=== PATIENT | female | born 1945 | race Caucasian/White ===

== ENCOUNTER 2017-06-08 11:29 | Observation (INO) | payer MEDICARE, OTHER ==
[2017-06-08] MEDS ORDERED: NS 0.9% 1000 ML* 2,000 ML IV ONE (12:00)
[2017-06-08 12:22] LABS: Hematocrit 28 % (35-47); Hemoglobin 9.1 g/dl (12.0-16.0); Mean Corpuscular HGB Conc 33 g/dl (31-36); Mean Corpuscular Hemoglobin 31 pg (27-31); Mean Corpuscular Volume 95 fL (80-97); Mean Platelet Volume 8 um3 (7.4-10.4); Red Blood Count 2.91 10^6/ul (4.0-5.4); Red Cell Distribution Width 15 % (10.5-15); White Blood Count 8.4 10^3/ul (3.5-10.8)
[2017-06-08 12:39] LABS: Albumin 3.2 g/dL (3.2-5.2); C Reactive Protein 212.8 mg/L (< 5.00); Calcium 9.4 mg/dL (8.6-10.3); EGFR African American 26.3 (>60); EGFR Non-African American 20.5 (>60); Globulin 3.6 g/dL (2-4); Potassium 3.3 mmol/L (3.5-5.0); Total Bilirubin 0.6 mg/dL (0.2-1.0); Total Protein 6.8 g/dL (6.4-8.9)
[2017-06-08] MEDS ORDERED: Potassium Chlor TAB* 20 MEQ TAB.ER PO ONE (13:12)
--- NOTE | 2017-06-08 13:39 | ED ---
Znea Allison Thomas, scribed for Kami Santana MD on 06/08/17 at 1205 . Complex/Multi-Sys Presentation - HPI Summary HPI Summary: The pt is a 71 y/o F BIBA after a syncopal episode that occurred earlier today as she was walking to the bathroom. The patient has been having watery diarrhea for the last four days. She feels dehydrated. Pt denies vomiting, fever, and dizziness. She denies recent antibiotics use or recent sick contacts. She last voided shortly before arrival to the ED. - History Of Current Complaint Chief Complaint: EDSyncope Time Seen by Provider: 06/08/17 11:37 Hx Obtained From: Patient Onset/Duration: Lasting Days - 4, Still Present, Worse Since - syncopal episode earlier today Timing: Intermittent, Lasting: Severity Currently: Moderate Location: Negative Aggravating Factor(s): None Alleviating Factor(s): None Associated Signs And Symptoms: Positive: Other - Syncope, diarrhea; NEGATIVE: vomiting, fever, dizziness - Allergies/Home Medications Allergies/Adverse Reactions: Allergies Allergy/AdvReac Type Severity Reaction Status Date / Time No Known Allergies Allergy Verified 12/01/13 14:25 Home Medications: Home Medications Allopurinol TAB* [Zyloprim 100 MG TAB*] 200 mg PO DAILY 06/08/17 [History Confirmed 06/08/17] PMH/Surg Hx/FS Hx/Imm Hx Previously Healthy: No Endocrine/Hematology History: Denies: Hx Diabetes, Hx Thyroid Disease Cardiovascular History: Reports: Hx Hypertension, Hx Valvular Heart Disease - MITRAL VALVE REGURGITATION Respiratory History: Denies: Hx Asthma, Hx Chronic Obstructive Pulmonary Disease (COPD) GI History: Reports: Hx Gall Bladder Disease - CHOLECYSECTOMY Denies: Hx Ulcer History: Denies: Hx Acute Renal Failure - CURRENT DX 03/13/13 - Cancer History Cancer Type, Location and Year: UTERINE CA (TREATED W/ RADIATION & CHEMO) Hx Chemotherapy: Yes Hx Radiation Therapy: Yes - Surgical History Surgery Procedure, Year, and Place: 2008 HYSTERECTOMY R/T UTERINE CANCER. CHOLECYSTECTOMY. PORT-A-CATH INSERTION & D/C 03/10/13-removed 03/07/13 Infectious Disease History: No Infectious Disease History: Reports: Hx Shingles - DX 03/11/13 Denies: Hx Hepatitis, Hx Human Immunodeficiency Virus (HIV), History Other Infectious Disease, Traveled Outside the [place] in Last 30 Days - Family History Known Family History: Positive: Other - Patient denies relevant FHx - Social History Lives: With Family Alcohol Use: Rare Substance Use Type: Reports: None Review of Systems Negative: Fever Positive: Diarrhea. Negative: Vomiting Neurological: Other - NEGATIVE: dizziness Positive: Syncope All Other Systems Reviewed And Are Negative: Yes Physical Exam - Summary Physical Exam Summary: VITAL SIGNS: Reviewed. GENERAL: Patient is a well-developed and nourished female who is lying comfortable in the stretcher. Patient is not in any acute respiratory distress. HEAD AND FACE: No signs of trauma. No ecchymosis, hematomas or skull depressions. No sinus tenderness. EYES: PERRLA, EOMI x 2, No injected conjunctiva, no nystagmus. EARS: Hearing grossly intact. Ear canals and tympanic membranes are within normal limits. MOUTH: Oropharynx within normal limits. NECK: Supple, trachea is midline, no adenopathy, no JVD, no carotid bruit, no c- spine tenderness, neck with full ROM. CHEST: Symmetric, no tenderness at palpation LUNGS: Clear to auscultation bilaterally. No wheezing or crackles. CVS: Regular rate and rhythm, S1 and S2 present, no murmurs or gallops appreciated. ABDOMEN: Soft, non-tender. No signs of distention. No rebound no guarding, and no masses palpated. Hyperactive bowel sounds. EXTREMITIES: FROM in all major joints, no edema, no cyanosis or clubbing. NEURO: Alert and oriented x 3. No acute neurological deficits. Speech is normal and follows commands. SKIN: Dry and warm Triage Information Reviewed: Yes Vital Signs On Initial Exam: Initial Vitals BP 104/48 06/08/17 11:48 Vital Signs Reviewed: Yes Diagnostics - Vital Signs Vital Signs Temp Pulse Resp BP Pulse Ox 06/08/17 11:51 97.6 F 73 18 104/48 97 06/08/17 11:49 73 99 06/08/17 11:48 104/48 - Laboratory Result Diagrams: 06/08/17 12:09 06/08/17 12:09 Lab Statement: Any lab studies that have been ordered have been reviewed, and results considered in the medical decision making process. Complex Multi-Symp Course/Dx - Diagnoses Provider Diagnoses: Acute renal insufficiency, Dehydration, Diarrhea - Physician Notifications Discussed Care Of Patient With: Fam Clarke Time Discussed With Above Provider: 13:28 Instructed by Provider To: Other - Dr. Clarke, hospitalist, will admit the patient. Discharge - Discharge Plan Condition: Fair Disposition: ADMITTED TO [facility] Referrals: Roverto Salas MD [Primary Care Provider] - The documentation as recorded by the Zena gonzalez Thomas accurately reflects the service I personally performed and the decisions made by me, Kami Santana MD.
[2017-06-08] MEDS: NS 0.9% 1000 ML* 1,000 ML IV SCH (16:25)
[2017-06-08 16:34] LABS: Urine Bacteria Absent (Absent); Urine Bilirubin Negative (Negative); Urine Glucose Negative (Negative); Urine Nitrite Negative (Negative)
--- NOTE | 2017-06-08 16:47 | HP ---
HISTORY AND PHYSICAL: DATE OF ADMISSION: 06/08/17 ADMITTING PHYSICIAN: Fam Clarke MD. PRIMARY CARE PHYSICIAN: LITA Headley. PRIMARY PEOPLESOFT FINANCIAL DEVELOPER: Dr. Gomez. CHIEF COMPLAINT: Profuse watery diarrhea x4 days, followed by loss of consciousness on the day of admission. HISTORY OF PRESENT ILLNESS: Moon Hayes is a 71-year-old female who presents with profuse watery diarrhea times last 4 days. She is having 5 to 7 bowel movement a day including 3 today. Denies fevers or chills. Today, the patient was lightheaded while standing. She had an observed fall with her present who was unable to catch her. She hit her back on the side of a corner of her bathroom. She denied any chest pain, shortness of breath or palpitations , tongue biting, arm or leg movements, urination. The patient denies also any fever, chills, abdominal pain, nausea or vomiting symptoms frankly just limited to the diarrhea. She has cut back markedly on her solid p.o. intake and started focusing on drinking lot of water and Tono-Aid. She did have some ____ _ with her pills this morning, which she did all take her 3 morning antihypertensive medications including lisinopril 20, hydrochlorothiazide 25, metoprolol 50 in the a.m. (100 at night). Upon evaluation in the emergency room , the patient was noted to have acute kidney injury with elevated creatinine at 2.33 up from her baseline of 0.93 on 06/05/17. Potassium was low at 3.3. CRP was 212. Hemoglobin 9.1, blood pressures were 98 to 104 over 43 to 48. Heart rate was 70s to 80s, afebrile. The patient is being evaluated by hospitalist service for AILEEN, profuse diarrhea. PAST MEDICAL HISTORY: Mitral valve regurgitation, unknown severity; cardiomyopathy, unknown severity; hypertension; history of uterine cancer, status post chemotherapy, radiation, and hysterectomy. MEDICATIONS: 1. Allopurinol 200 mg daily. 2. Lisinopril 20 mg p.o. b.i.d. 3. Hydrochlorothiazide 25 mg p.o. q. a.m. 4. Metoprolol succinate 50 mg p.o. q. a.m. and 100 mg p.o. at bedtime. ALLERGIES: No known drug allergies. FAMILY HISTORY: The patient was adopted, does not know anything about siblings or parents' family medical history. SOCIAL HISTORY: The patient is a nonsmoker and nondrinker. Lives in [place] with her , Rogers Hayes, who is her medical proxy along with her daughter Em. The patient was a homemaker, is quite active at baseline. REVIEW OF SYSTEMS: A [id number] review of systems negative except as per HPI. PHYSICAL EXAMINATION GENERAL APPEARANCE: No acute distress. Sitting in the [facility]. HEENT: Normocephalic, atraumatic. Pupils equally round and reactive to light. Extraocular motions intact. No oropharynx lesions. Mucous membranes not particularly dry appearing. NECK: No cervical lymphadenopathy. PULMONARY: Clear to auscultation bilaterally with no wheezing, rales, or rhonchi. CARDIOVASCULAR: Regular rate and rhythm. No murmurs, rubs, or gallops. ABDOMEN: Soft, nontender, nondistended. No rebound or guarding. No Thomas's sign. EXTREMITIES: Warm, well perfused. No peripheral edema. NEURO: Call Center Supervisor strength and hip flexion 5/5 bilaterally. Sensation intact. Cranial nerves II through XII are intact grossly intact. SKIN: No lesions. No rashes. IMAGING DATA: None. LABORATORY DATA: White count 8.4, hemoglobin 9.1, hematocrit 28. Sodium 134, potassium 3.3, chloride 88, carbon dioxide 24, BUN 56, creatinine 2.33. Glucose 146, lactic acid 1.2. AST 42, CRP 212, amylase 100, lipase 36. ASSESSMENT AND PLAN: The patient is a 71-year-old female with PMH, hypertension , uterine cancer, remote uterine cancer, gout, mitral valve regurgitation of unknown significance and cardiomyopathy of unknown significance. (Of note, the patient had echo in the fall with Dr. Gomez, who was reportedly very pleased with the echo). Presenting with profuse large diarrhea x4 days. The patient denies any recent antibiotic use, sick contacts, or strange food ingestions. May have a self- limited viral gastroenteritis. We will get a C. diff sample just to ruled that out. Given the severity of the diarrhea and the AILEEN. We will continue on fluid hydration she is got 2 L now. We will put her on 150 mL of normal saline for next 16 hours and monitor her volume status. No signs of respiratory distress. Denies PND. No orthopnea. Baseline hydrochlorothiazide for blood pressure. The patient otherwise without any abdominal pain. I will hold on getting any additional imaging at this time. BUN and creatinine ratio suggestive of prerenal along with a history. She has been admitted to observation status for hydration and improvement of her kidney function. For hypertension, we will hold her lisinopril 20 mg twice a day. Her hydrochlorothiazide 25. Her metoprolol succinate 50 q. a.m. and 100 q. p.m. for now given her syncopal event and relative low blood pressures, we will check orthostatic vital signs. She can be on a regular diet. We will continue her allopurinol for tomorrow as long as her kidney function does not get worse. She is a full code. Medical surrogate decision maker is , Rogers Hayes and daughter Em. [id number]/[facility] #: [id number] MTDD
[2017-06-09] MEDS: NS 0.9% 1000 ML* 1,000 ML IV SCH (00:49)
[2017-06-09] MEDS ORDERED: Acetaminophen TAB* 325 MG PO PRN (03:49)
[2017-06-09 08:05] LABS: Magnesium 1.7 mg/dL (1.9-2.7)
[2017-06-09] MEDS ORDERED: NS 0.9% 1000 ML* 1,000 ML IV SCH (09:00)
[2017-06-09] MEDS ORDERED: Allopurinol TAB* 100 MG PO SCH (09:00)
[2017-06-09] MEDS ORDERED: Loperamide CAP* 2 MG PO SCH (10:00)
[2017-06-09] MEDS ORDERED: Magnesium Sulfate 2 GM IV* 2 GM/50 ML BAG IVPB ONE (10:55)
[2017-06-09 11:07] VITALS: BP 93/42
[2017-06-09 11:16] LABS: Hematocrit 24 % (35-47); Mean Corpuscular HGB Conc 33 g/dl (31-36); Mean Corpuscular Hemoglobin 32 pg (27-31); Mean Corpuscular Volume 95 fL (80-97); Mean Platelet Volume 8 um3 (7.4-10.4); Red Blood Count 2.52 10^6/ul (4.0-5.4); Red Cell Distribution Width 15 % (10.5-15); White Blood Count 4.7 10^3/ul (3.5-10.8)
[2017-06-09 11:31] LABS: BUN/Creatinine Ratio 26.4 (8-20); EGFR African American 62.6 (>60); EGFR Non-African American 48.7 (>60); Magnesium 1.5 mg/dL (1.9-2.7); Potassium 3.1 mmol/L (3.5-5.0)
[2017-06-09] MEDS ORDERED: Potassium Chlor TAB* 20 MEQ TAB.ER PO SCH (12:00)
--- NOTE | 2017-06-10 07:07 | DS ---
DATE OF ADMISSION: 06/08/17 DATE OF DISCHARGE: 06/09/17 ADMITTING PROVIDER: Fam Clarke MD ATTENDING PHYSICIAN: Fam Clarke MD PRIMARY CARE PHYSICIAN: Roverto Salas MD PRIMARY DISTRIBUTOR SALES CONSULTANT: Dr. Gomez. CHIEF COMPLAINT: Profuse watery diarrhea x4 days followed by syncope, loss of consciousness. PRINCIPAL DIAGNOSES: Noninfectious diarrhea; acute kidney injury; acute vasovagal orthostatic hypotension in the setting of hypovolemia in the setting of profuse diarrhea. HISTORY OF PRESENT ILLNESS AND HOSPITAL COURSE: Moon Hayes is a 71-year-old female with a past medical history of mitral valve regurgitation, unknown severity; cardiomyopathy, unknown severity; hypertension; uterine cancer, status post radiation and hysterectomy; gout, presenting with 4 days of profuse watery diarrhea, 5 to 7 bowel movements a day. Denied any fever, chills. On the day of admission, she got lightheaded while standing. She fell in the presence of her , who was unable to catch her. She hit the back of her side in the corner of the bathroom wall. She denied chest pain, shortness of breath, palpitations, tongue biting, arm or leg movements, urination, fever, chills, abdominal pain, nausea, vomiting. Only symptoms limited to her diarrhea. She denies hitting her head. Denies headache. She presented to the emergency room, was found to have elevated creatinine to 2.3 from her baseline of 0.9. Blood pressures are in the high 90s to low 100s. Hemoglobin is 9.1. Heart rate in the 19s to 80, afebrile. She was admitted for diarrhea, AILEEN, syncope to observation status. She got first resuscitated with IV fluids with 2 L in the ED and 150 cc normal saline overnight. Creatinine, however, did improve to 1.1. Electrolytes were repleted. Potassium was initially 3.3 and magnesium 1.7. C. difficile tested, was negative. Imodium was started on hospital day #2. No diarrhea since late afternoon on the day of discharge. The patient is still without any complaint on reevaluation except frequent urinations in the setting of aggressive IV fluids. Of note, she had taken her home antihypertensives including hydrochlorothiazide 25 mg p.o. q.a.m., with Cipro 20 mg p.o. b.i.d., and metoprolol succinate 50 mg p.o. q.a.m., and 100 p.o. q.p.m. For syncope, orthostatics were tested, dropped 18 mmHg systolically from lying to sitting, but actually increased with standing. On the day of admission, patient had a urinalysis significant for 3+ leukocyte esterase, 3+ white count. She had no leukocytosis. Temperature was 100.3 early in the morning on hospital day #2. We will treat for urinary tract infection. Also, holding her lisinopril and hydrochlorothiazide upon discharge. She should follow up with Dr. Salas within 3 to 5 days and I have asked her to record her blood pressures with her cuff at home. DISCHARGE MEDICATIONS: Include: 1. Metoprolol succinate 50 mg p.o. q.a.m. and 100 mg p.o. q.h.s., hold if blood pressure is below 110 or heart rate is below 60. 2. Loperamide 2 mg p.o. daily for 7 capsules. 3. Allopurinol 200 mg p.o. daily. 4. Cefdinir 200 mg p.o. b.i.d. for 6 days. Of note, her lisinopril 20 mg p.o. b.i.d., and hydrochlorothiazide 25 mg p.o. q.a.m. were held until reevaluation by primary care physician. DISCHARGE DIET: No restrictions, unchanged. ACTIVITY LEVEL: No restrictions. FOLLOWUP: Follow up with Dr. Salas within 3 to 5 days with blood pressure measurements in hand. Time spent on this discharge was 35 minutes. [id number]/[facility] #: [id number] GILMAR
== END 2017-06-09 13:50 | disposition home or self-care (01) ==
LOC: ED 11:29 → UNDOADMIN 13:31 → MED 13:31 → INTOOBSV 13:31 → MED 14:33
PROVIDERS: ADMIT Internal Medicine; ATTEND Internal Medicine
DX: R19.7 Diarrhea, unspecified (principal); R55 Syncope and collapse; N17.9 Acute kidney failure, unspecified; I95.1 Orthostatic hypotension; I34.0 Nonrheumatic mitral (valve) insufficiency; I10 Essential (primary) hypertension; Z85.42 Personal history of malignant neoplasm of other parts of uterus; Z88.1 Allergy status to other antibiotic agents; Z79.899 Other long term (current) drug therapy
CPT/HCPCS: 36415; 80048; 80053; 81003; 81015; 82150; 83605; 83630; 83690; 83735; 85025; 86140; 87045; 87046; 87077; 87086; 87186; 87493; 87899; 96361; 96365; 99284; A9270-GY; G0378; J3475

== ENCOUNTER → 2017-09-04 19:11 | Emergency (ER) | payer MEDICARE, OTHER ==
[2017-09-04 19:22] VITALS: BP 00/00
--- NOTE | 2017-09-04 22:11 | ED ---
Goran Allison Gabriel, scribed for Rogers Hayes MD on 09/04/17 at 1920 . Cardiac Resuscitation - HPI Summary HPI Summary: This patient is a 72 year old F BIBA to [facility] while in cardiac arrest. EMS reports she was left alone at home for 30 minutes and when her family came to check on her she was unconscious. EMS arrived and the patient has been asystolic for a hour by the time she arrived. At 1910 she was pronounced after bedside US by Dr. Hayes. - History of Current Complaint Stated Complaint: ABC ALERT Time Seen by Provider: 09/04/17 19:12 Hx Obtained From: EMS Down-time Before Basic Life Support Initiated: Down-time before BLS initiated: - 30 Down-time Before Advanced Life Support Initiated: Down-time before ALS initiated : - 45 Was AED Placed on Patient: Yes AED Placed on Patient By: EMS - Additional Pertinent History Primary Care Physician: [id number] - Allergies/Home Medications Allergies/Adverse Reactions: Allergies Allergy/AdvReac Type Severity Reaction Status Date / Time Acyclovir [Acyclovir] Allergy Altered Verified 06/08/17 16:03 Mental Status MS Gabapentin [Gabapentin] Allergy Altered Verified 06/08/17 16:03 Mental Status Home Medications: Home Medications Unobtainable [Unobtainable] 09/04/17 [History Confirmed 09/04/17] - Past Medical History Past Medical History: Unobtainable Due to Extremis - Family History Family History: Unobtainable Due to Extremis - Social History Social History: Unobtainable Due to Extremis - Review of Systems Review of Systems: Unobtainable Due to Extremis Physical Examination - Summary Physical Exam Summary: CPR in progress on auto pulse Fixed dilation of the pupils at 4-5 mm no corneal reflex no spontaneous respiratory No spontaneous pulse Clear breath sound with bagging Femoral pules with auto pulse US was used to visualize the heart and she was in cardiac stand still Diagnostics - Vital Signs Vital Signs Temp Pulse Resp BP Pulse Ox 09/04/17 19:23 96.1 F 0 0 00/00 0 09/04/17 19:11 96.1 F 0 0 00/00 0 - Laboratory Lab Statement: Any lab studies that have been ordered have been reviewed, and results considered in the medical decision making process. Cardiac Resus. Course/Dx - Course Course Of Treatment: Ms. Hayes was found unresponsive by her family who started CPR. EMS found her in asystole and gave her rounds of ACLS without any response. When she arrived here she was noted to have no life signs and cardiac standstill on U/S. She was estimated by EMS to have been in asystole for an hour at that time and I felt it was time to let her go. I pronounced her at 1910. - Diagnoses Provider Diagnoses: Cardiopulmonary arrest - Provider Notifications Discussed Care Of Patient With: Roverto Salas Time Discussed With Above Provider: 19:33 Instructed by Provider To: Other - We discussed patient care with Dr. Salas and informed him of the passing and her presentation. His office will sign the certificate. Discharge - Discharge Plan Condition: Disposition: Referrals: No Primary Care Phys,NOPCP [Primary Care Provider] - The documentation as recorded by the Goran gonzalez Gabriel accurately reflects the service I personally performed and the decisions made by me, Rogers Hayes MD.
== END | disposition expired ==
LOC: ED 19:11
DX: I46.9 Cardiac arrest, cause unspecified (principal)
CPT/HCPCS: 99285